=== PATIENT | male | born 1995 | race Two or more races ===

== ENCOUNTER 2018-08-01 13:49 | Emergency (ER) | payer SELFPAY ==
[2018-08-01 13:55] VITALS: BP 143/96
[2018-08-01] MEDS ORDERED: CEPHALEXIN 500 MG CAP PO ONE (14:04)
--- NOTE | 2018-08-01 14:09 | EDPHY ---
H & P Time Seen by Provider: 08/01/18 13:50 HPI/ROS: CHIEF COMPLAINT: Left thumb injury from table saw HISTORY OF PRESENT ILLNESS: 22-year-old male with up-to-date tetanus, right- hand dominant, was using a table saw when he slipped, sustained skin avulsion to the left thumb distal phalanx. His friend initially took him to [facility] who then called 911 from registration. Denies paresthesia. This was accidental. Denies other injury. REVIEW OF SYSTEMS: 10 systems reviewed and negative with the exception of the elements mentioned in the history of present illness PAST MEDICAL & SURGICAL HISTORY: No pertinent medical or surgical history SOCIAL HISTORY:Nonsmoker PHYSICAL EXAM (Prior to examination, patient consented to physical exam, hands were washed and my usual and customary physical exam procedures followed) 1) GENERAL: [Well-developed, well-nourished, alert and oriented. 2) HEAD: Normocephalic, atraumatic 3) HEENT: Sclera anicteric. 4) NECK: Full range of motion 5) LUNGS: Clear auscultation bilaterally, no wheezes, no rhonchi, no retractions. 6) HEART: Regular rate and rhythm. 7) ABDOMEN: No guarding, 8) MUSCULOSKELETAL: Left upper extremity: The patient's left thumb distal phalanx he has is avulsed the skin. No osseous fragments visualized. Flexor extensor function at the MCP and IP are present. Opposition intact with no deficits. Extensor pollicis longus , extensor pollicis brevis , abducter pollicis function intact. 9) BACK: No obvious trauma, no visual or palpable abnormality. 10) SKIN: No rash, no petechiae. 11) Psychiatric: Patient is oriented X 3, there is no agitation. DIFFERENTIAL DIAGNOSIS: In no particular order include but limited to open fracture, amputation, skin avulsion, laceration Smoking Status: Current every day smoker Constitutional: Initial Vital Signs Temperature (C) 36.7 C 08/01/18 13:52 Heart Rate 64 08/01/18 13:52 Respiratory Rate 18 08/01/18 13:52 Blood Pressure 143/96 H 08/01/18 13:52 O2 Sat (%) 99 08/01/18 13:52 O2 Delivery Mode Room Air Allergies/Adverse Reactions: No Known Allergies Allergy (Unverified 08/01/18 13:56) Home Medications: Medication Instructions Recorded Cephalexin [Keflex] 500 mg PO TID 5 Days cap 08/01/18 MDM/Departure - [facility] Imaging Results: Imaging Impressions Finger X-Ray 08/01/18 14:03 Impression: Soft tissue injury. i reviewed images myself Procedures: Procedure: Laceration repair. I explained the indications, risks and benefits for both laceration repair and anesthetic administration. Verbal consent was obtained from the patient. Left thumb was anesthetized with 1% plain lidocaine digital nerve block. This was performed for wound closure. Subsequently Surgicel dressing placed and bulky dressing placed. Hemostasis achieved. Medications Given: Discontinued Medications Cephalexin HCl (Keflex) 500 mg PO EDNOW ONE PRN Reason: Protocol Stop: 08/01/18 14:05 Last Admin: 08/01/18 14:31 Dose: 500 mg ED Course/Re-evaluation: Re-evaluation with serial exams. Wound care in the ER. Started on prophylactic antibiotics. Usual and customary wound precautions instructions provided. No indication for emergent hand consultation. Recommend follow up with outpatient Hand surgery for continued wound healing progression. He feels comfortable being discharged. No evidence of intra-articular or osseous injury on x-ray. He has no signs of infection. Started on prophylactic antibiotics. He feels comfortable being discharged. My usual customary wound precautions and instructions provided. I saw this patient independently based on established practice protocols. Care of patient under supervision of secondary supervising physician Dr Ureña . - Depart Disposition: Home, Routine, Self-Care Clinical Impression: Avulsion of skin of left thumb Qualifiers: Encounter type: initial encounter Qualified Code(s): S61.002A - Unspecified open wound of left thumb without damage to nail, initial encounter Condition: Good Instructions: Skin Avulsion (ED) Additional Instructions: Return to the ER if you develop redness, swelling, discharge, warmth to the wound, red streaks going up your arm, or any other symptoms that concern you. Prescriptions: Cephalexin [Keflex] 500 mg PO TID 5 Days cap Referrals: Ghazala Malone MD [Medical Doctor] - 2-3 days, call for appt.
[2018-08-01] MEDS ORDERED: HYDROCODONE/APAP 5/325 TAB ONE (14:49)
[2018-08-01] MEDS ORDERED: OXYCODONE/APAP 5/325 TAB PO ONE (14:49)
[2018-08-01] MEDS ORDERED: HYDROCODONE/APAP 5/325 TAB PO ONE (14:50)
== END 2018-08-01 14:56 | disposition home or self-care (01) ==
PROC: 0HQGXZZ Repair Left Hand Skin, External Approach (ICD-10-PCS; principal; 2018-08-01)
DX: S61.002A Unspecified open wound of left thumb without damage to nail, initial encounter (principal); W31.2XXA Contact with powered woodworking and forming machines, initial encounter; Y92.9 Unspecified place or not applicable; F17.200 Nicotine dependence, unspecified, uncomplicated